=== PATIENT | male | born 1970 | race Caucasian/White ===

== ENCOUNTER 2021-09-21 01:19 | Day surgery (SDC) | payer BC, SELFPAY ==
[2021-06-23 14:53] VITALS: BMI 31.6
[2021-08-12 14:33] VITALS: BMI 31.6
[2021-09-08 10:59] VITALS: BMI 31.6
[2021-09-21 10:18] VITALS: BP 146/80; PULSE 83; RESP 18; TEMP 36.8; O2SAT 98; BMI 34.2
[2021-09-21] MEDS: LACTATED RINGERS 1,000 ML 150 ML IV CONT (10:42)
--- NOTE | 2021-09-21 10:43 | WPDANESEPPF ---
Anes - Initial Pre Proc Eval Procedure: Operation Date: 09/21/21 11:30 Proposed Procedures p Screening Colonoscopy - Cedric Felipe MD Date/Time: 09/21/21 10:43 Surgeon: Cedric Felipe MD Pre Op Diagnosis: neoplasm screening Patient Data Age: 51 Gender: M Height: 1.78 m Weight: 108.3 kg Last Vital Signs Temp 36.8 C 09/21/21 10:18 Pulse 83 09/21/21 10:18 Resp 18 09/21/21 10:18 BP 146/80 H 09/21/21 10:18 Pulse Ox 98 09/21/21 10:18 Allergies Allergy/AdvReac Type Severity Reaction Status Date / Time No Known Allergies Allergy Unknown Verified 09/21/21 10:28 Home Medications Medication Instructions Recorded Confirmed Type testosterone 1 tube TRANSDERMAL QAM 06/23/21 09/21/21 History Patient hx anesthesia problems: none Family hx anesthesia problems: none Results Review: All pre-operative results and documents have been reviewed as part of the pre-operative evaluation. FOR[facility]LY [facility], [facility] Past Medical History Medical History (Updated 09/21/21 @ 10:44 by Pb Gomez MD) Colonoscopy planned (~04/2015) Obesity Vasectomy planned (~06/2015) Family History Family History Father , 66 Lung cancer Mother Alive and well Social History Social History Social History: Patient drinks coffee Years smoked: 19 Smoking status: Former smoker Tobacco type: cigarettes Smoking end date: 08/06/08 Alcohol intake: current Drinks per week: 14 Alcohol use details: Patient drinks alcohol rarely. 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[employer] Gender identity (if verbalized by the patient): Male Sexual Orientation (if Verbalized by the Patient): Straight or Heterosexual Spiritual care concerns: No Anes - Eval Final PreProcedure Day of Procedure 09/21/21 10:43 Patient weight: obese Heart: regular rate and rhythm Lungs: clear to auscultation Airway: Mallampati scale class II Neurological: alert and oriented Last oral intake: >/= 8 hours ASA classification: II Emergent: no Anesthetic plan: proceed Anesthesia type and monitoring: general GIVS and standard monitoring Results Review: All pre-operative results and documents have been reviewed as part of the pre-operative evaluation. Informed Consent: The patient's anesthetic plan and its attendant risks and benefits were discussed with the patient/family/POA. Questions were solicited and answers provided to the satisfaction of the patient/family/POA.
--- NOTE | 2021-09-21 10:48 | PM.HPGS ---
History of Present Illness History of Present Illness Consent: Risks, benefits, and alternatives have been discussed and questions answered. Patient agrees to proceed with procedure. Chief complaint: neoplasm screening Narrative: Gerry Rowland is a 51 year old male with colon polyp 5 years ago. Review of Systems Constitutional: Constitutional: Denies headache(s) and Denies weakness Eyes: Eyes: Denies blurry vision ENT: Reports Normal hearing present, Denies headache(s) and Denies neck pain Cardiovascular: Cardiovascular: Denies chest pain and Denies dyspnea Respiratory: Respiratory: Denies dyspnea Gastrointestinal: Gastrointestinal: Reports no additional gastrointestinal complaints Genitourinary: Genitourinary: Denies dysuria Musculoskeletal: Musculoskeletal: Denies neck pain Integumentary/Breasts: Skin/Breast: Denies dry skin Neurologic: Reports Normal hearing present, Denies headache(s) and Denies weakness Psychiatric: Psychiatric: Denies anxiety Endocrine: Endocrine: Denies change in body appearance Hematologic/Lymphatic: Hematologic/Lymphatic: Denies easy bleeding Allergic/Immunologic: Allergic/Immunologic: Denies urticaria PMF Past Medical History Medical History (Updated 09/21/21 @ 10:44 by Pb Gomez MD) Colonoscopy planned (~04/2015) Obesity Vasectomy planned (~06/2015) Family History Family History Father , 66 Lung cancer Mother Alive and well Social History Social History Social History: Patient drinks coffee Years smoked: 19 Smoking status: Former smoker Tobacco type: cigarettes Smoking end date: 08/06/08 Alcohol intake: current Drinks per week: 14 Alcohol use details: Patient drinks alcohol rarely. 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 Gender identity (if verbalized by the patient): Male Sexual Orientation (if Verbalized by the Patient): Straight or Heterosexual Spiritual care concerns: No Meds Home Medications and Allergies Home Medications Medication Instructions Recorded Confirmed Type testosterone 1 tube TRANSDERMAL QAM 06/23/21 09/21/21 History Allergies Allergy/AdvReac Type Severity Reaction Status Date / Time No Known Allergies Allergy Unknown Verified 09/21/21 10:28 Vital Signs Vital Signs - 24 hr 09/21/21 10:18 Temperature 98.2 F Pulse Rate 83 Respiratory Rate 18 Blood Pressure 146/80 H Pulse Oximetry 98 Exam Const: General: comfortable and no acute distress HENMT: General nose exam: Normal nares present Eyes: General: appearance normal, both eyes and all related structures Neck: Neck: no JVD Resp: Auscultation: clear to auscultation bilaterally Cardio: Rate: regular rate Rhythm: regular rhythm GI: Inspection: non-distended GI Palp: Yes Soft to palpation Skin: General skin exam: normal color Neuro: General: gait normal Speech: normal speech Extrem: General: normal to inspection Psych: Mental Status: mental status grossly normal Assessment and Plan Assessment and plan (1) Screening for malignant neoplasm of colon: Code(s): Z12.11 - Encounter for screening for malignant neoplasm of colon Status: Acute Assessment and Plan: colonoscopy
[2021-09-21 11:05] VITALS: BP 124/76; PULSE 91; RESP 21; O2SAT 94
[2021-09-21 11:15] VITALS: BP 115/79; PULSE 80; RESP 16; O2SAT 96
[2021-09-21 11:25] VITALS: BP 119/80; PULSE 75; RESP 19; O2SAT 92
[2021-09-21 11:35] VITALS: BP 117/84; PULSE 76; RESP 17; O2SAT 100
[2021-09-21 11:45] VITALS: BP 121/86; PULSE 74; RESP 18; O2SAT 100
== END 2021-09-21 11:51 | disposition home or self-care (01) ==
PROVIDERS: PCP Emergency Medicine; Visit Provider Internal Medicine Gastroenterology
PROC: 0DJD8ZZ Inspection of Lower Intestinal Tract, Via Natural or Artificial Opening Endoscopic (ICD-10-PCS; CPT 45378; principal; 2021-09-21 11:30)
DX: Z12.11 Encounter for screening for malignant neoplasm of colon (principal); K64.8 Other hemorrhoids; Z86.010 Personal history of colon polyps; Z87.891 Personal history of nicotine dependence; E66.9 Obesity, unspecified; Z68.34 Body mass index [BMI] 34.0-34.9, adult
CPT/HCPCS: 45378; J2704; J7120

== ENCOUNTER 2023-03-15 22:14 | Emergency (ER) | payer BC, SELFPAY ==
--- NOTE | ~2023-03-15 | XR_ITS ---
EXAMINATION: XR chest 2V Exam Date/Time: 03/15/2023 22:48 CDT HISTORY: intermittent High Blood pressure x 3 days with no history Comparison: 06/11/2005. RESULT: Lines, tubes, and devices: None. Lungs and pleura: Clear. Cardiomediastinal silhouette: Stable. Other: No acute osseous or upper abdominal finding. IMPRESSION: No acute cardiopulmonary process. Reviewed, dictated and finalized at location K.
--- NOTE | 2023-03-15 22:15 | ECG_ITS ---
Measurements Intervals [place] Rate: 110 P: 53 CT: 193 QRS: 3 QRSD: 98 T: 53 QT: 311 QTc: 422 Interpretive Statements SINUS TACHYCARDIA POSSIBLE LEFT ATRIAL ENLARGEMENT [-0.1mV P WAVE IN V1/V2] LOW QRS VOLTAGE IN PRECORDIAL LEADS [QRS DEFLECTION < 1.0 mV IN CHEST LEADS] NONSPECIFIC ST & T-WAVE ABNORMALITY ABNORMAL RHYTHM ECG NO PREVIOUS ECG AVAILABLE FOR COMPARISON Electronically Signed On 03-16-2023 8:57:36 CDT by Oneida Guzmán M.D.
[2023-03-15 22:16] VITALS: BP 136/97; PULSE 118; RESP 16; TEMP 36.4; O2SAT 96
[2023-03-15 22:30] LABS: Basophils Absolute Auto 0.1 K/mm3 (0.0-0.1); Basophils Percent Auto 1.1 % (0.2-1.2); Eosinophils Absolute Auto 0.1 K/mm3 (0-0.3); Eosinophils Percent Auto 1.1 % (0-4.4); Hematocrit 44.5 % (42.0-52.0); Hemoglobin 15.5 g/dL (14.0-18.0); Immature Granulocyte Absolute 0.01 K/mm3 (0.00-0.031); Immature Granulocyte Percent A 0.1 % (0-0.5); Lymphocytes Absolute Auto 2.98 K/mm3 (0.9-3.2); Lymphocytes Percent Auto 35.8 % (18.3-44.2); Mean Corpuscular HGB Conc 34.8 g/dl (32-36); Mean Corpuscular Hemoglobin 30.8 pg (26-34); Mean Corpuscular Volume 88.5 fl (80-100); Monocytes Absolute Auto 0.6 K/mm3 (0.1-0.6); Monocytes Percent Auto 6.6 % (2.6-8.5); Neutrophils Absolute Auto 4.6 K/mm3 (1.3-6.7); Neutrophils Percent Auto 55.3 % (45.5-73.1); Platelet Count Result 307 k/mm3 (150-375); Red Blood Count 5.03 M/mm3 (4.6-6.20); Red Cell Distribution Width 12.7 % (11.5-14.5); White Blood Count 8.3 K/mm3 (4.5-10.0)
[2023-03-15 22:39] LABS: Alanine Aminotransferase 54 U/L (6-50); Albumin Level 4.6 g/dL (3.5-5.1); Alkaline Phosphatase 93 U/L (38-126); Anion Gap 8 mmol/L (8-16); Aspartate Amino Transferase 45 U/L (17-59); Blood Urea Nitrogen 16 mg/dL (9-20); Carbon Dioxide 29 mmol/L (22-30); Chloride 103 mmol/L (98-107); Estimated CRCL calculation 78 ml/min; Estimated Glomerular Filt Rate > 60; Glucose 139 mg/dL (65-110); Lipase 120 U/L (23-300); Potassium 3.3 mmol/L (3.4-5.0); Sodium 140 mmol/L (137-145)
[2023-03-15 22:41] LABS: Partial Thromboplastin Time 26.2 SECONDS (22.3-36.8); Prothrombin Time 13.7 Seconds (11.1-14.7)
[2023-03-15 22:51] LABS: Troponin I < 0.012 ng/mL (0.000-0.034)
[2023-03-15 23:14] VITALS: BP 100/77; PULSE 97; RESP 14; O2SAT 100
[2023-03-15 23:17] VITALS: BP 105/70; BP 105/78; PULSE 103; PULSE 92
[2023-03-15 23:20] VITALS: BP 100/76; PULSE 117
--- NOTE | 2023-03-15 23:48 | ED.GENADULT ---
[facility] - General Adult General Chief complaint: Arrhythmia/Palpitations Stated complaint: chest pain Time Seen by Provider: 03/15/23 23:17 Source: patient Mode of arrival: ambulatory Limitations: no limitations History of Present Illness HPI narrative: This is a 53-year-old male who presents to the ED with chief complaint of palpitations onset x 2 days and worse this evening. Patient states that he has been monitoring his blood pressure very closely and taking it multiple times per day. He states he is also checking his heart rate multiple times per day he states that he will notice that the heart rate is in the 120s on his watch. Also reports feelings of the heartbeat racing. As I am taking the history, he states that his symptoms are completely resolved. He states he has had a slight twinge of chest pain in the left chest, but feels this may be muscular related. Denies shortness of breath, fevers, chills, nausea, vomiting, diarrhea, urinary problems, headache, syncope, leg swelling. Related Data Allergies Allergy/AdvReac Type Severity Reaction Status Date / Time No Known Allergies Allergy Unknown Verified 09/12/22 09:36 Review of Systems Review of Systems: All systems as dictated in [facility] Past Medical History Medical History Colonoscopy planned (~04/2015) Obesity Post-procedural erectile dysfunction Vasectomy planned (~06/2015) Family History Family History Father , 66 Lung cancer Mother Alive and well Social History Social History Social History: Patient drinks coffee Years smoked: 19 Smoking status: Former smoker Tobacco type: cigarettes Smoking end date: 08/06/08 Alcohol intake: current Drinks per week: 14 Alcohol use details: Patient drinks alcohol rarely. 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 HEAD: Normocephalic, atraumatic. EYES: PERRLA and EOMI. ENT: Nares clear, no rhinorrhea or epistaxis. Mucous membranes moist. Oropharynx without tonsillar hypertrophy exudate or other lesions. NECK: Supple. No adenopathy or masses. CHEST: No respiratory distress. Clear to auscultation. No wheezes rales or rhonchi HEART: Regular rate and rhythm. No murmur heard. Normal peripheral pulses. ABDOMEN: Soft, nontender, nondistended, normal active bowel sounds. MSK: Normal range of motion. No edema. SKIN: Warm, dry, no rash. NEURO: Alert and oriented x3. No focal deficits. PSYCH: Anxious mood. Appropriate affect. Course Vital Signs Vital signs: Vital Signs Temperature 97.6 F 03/15/23 22:16 Pulse Rate 118 H 03/15/23 22:16 Respiratory Rate 16 03/15/23 22:16 Blood Pressure 136/97 H 03/15/23 22:16 Pulse Oximetry 96 03/15/23 22:16 Oxygen Delivery Room Air 03/15/23 22:16 Temperature 97.6 F 03/15/23 22:16 Pulse Rate 71 03/16/23 01:43 Respiratory Rate 16 03/16/23 01:43 Blood Pressure 108/69 03/16/23 01:43 Pulse Oximetry 96 03/16/23 01:43 Oxygen Delivery Room Air 03/15/23 22:16 Medical Decision Making [facility] Narrative Medical decision making narrative: This is a 53-year-old male who presents to the ED with chief complaint of palpitations ongoing for the past day. Vitals show initial tachycardia to 118 but hemodynamically stable. Exam is benign. EKG shows initial sinus tachycardia but no acute ischemic findings. Lab work unremarkable. Troponin negative. D-dimer negative. Chest x
[2023-03-16 00:13] LABS: D Dimer 0.46 ug/mL (<0.48)
[2023-03-16 00:16] VITALS: BP 112/80; PULSE 88; RESP 14; O2SAT 94
[2023-03-16 01:31] LABS: Troponin I < 0.012 ng/mL (0.000-0.034)
[2023-03-16 01:43] VITALS: BP 108/69; PULSE 71; RESP 16; O2SAT 96
== END 2023-03-16 01:47 | disposition home or self-care (01) ==
PROVIDERS: Emergency Medicine; Emergency Provider Physician Assistant; PCP Emergency Medicine
DX: R00.2 Palpitations (principal); E66.9 Obesity, unspecified; Z68.33 Body mass index [BMI] 33.0-33.9, adult; Z87.891 Personal history of nicotine dependence; R00.0 Tachycardia, unspecified; R94.31 Abnormal electrocardiogram [ECG] [EKG]
CPT/HCPCS: 36415; 71046; 80053; 83690; 84484; 85025; 85380; 85610; 85730; 93005; 99284